=== PATIENT | female | born 1985 | race Caucasian/White ===

== ENCOUNTER → 2022-09-18 | Outpatient (CLI) | payer OTHER, SELFPAY ==
--- NOTE | 2022-09-18 10:24 | MRI_ITS ---
STUDY: MRI THORACIC SPINE WITHOUT CONTRAST REASON FOR EXAM: Female, 36 years old. SPONDYLOSIS WITH RADICULOPATHY TECHNIQUE: Standardized fat and water weighted pulse sequences were obtained in the sagittal and axial planes. COMPARISON: None. FINDINGS: Normal kyphosis of the thoracic spine. There is no substantial scoliosis. No marrow edema or fracture or compression deformity is present. T1-2, T2-3, T3-4, T4-5, T5-6, T6-7, T7-8, T8-9, T9-10, T10-11, T11-12: Small anterior and paravertebral endplate spurs are present at nearly all levels. No posterior disc herniation or bulging or extrusions. No demonstrated cord compression. Normal disc hydration, heights and morphology of the corresponding intervertebral discs. Normal central canal and intervertebral neural foramina at the corresponding levels. Normal visualized thoracic cord. No cord syrinx or edematous signal is present. No extradural or intradural masses are seen. Normal conus medullaris that terminates at the . The soft tissue structures are unremarkable. MRI/Spine Thoracic (Routine) IMPRESSION: 1. Mild multilevel endplate spurring of the thoracic spine. 2. No visualized central canal stenosis or cord compression or foraminal stenosis. Electronically Signed: Luis Alberto Carrillo MD at 14:23 EDT ,
== END | disposition home or self-care (01) ==
PROVIDERS: Referring Provider Orthopaedic Surgery; Visit Provider Orthopaedic Surgery
DX: M47.24 Other spondylosis with radiculopathy, thoracic region (principal); E66.8 Other obesity
CPT/HCPCS: 72146